=== PATIENT | male | born 1945 | race Asian ===

== ENCOUNTER 2023-08-13 03:28 | Emergency (ER) | payer MEDICARE, OTHER, SELFPAY ==
[2023-08-13 03:30] VITALS: BP 140/80
[2023-08-13 04:05] VITALS: BP 135/79
--- NOTE | 2023-08-13 04:12 | ED.GENMED ---
History of Present Illness
<GERARDO Massey - Last Filed: 08/13/23 04:27>
General
Chief Complaint: Cough
Source: patient and family
Exam Limitations: none
Time Seen by Provider: 08/13/23 03:53
Nursing documentation reviewed up to this point in time: agreed with
Travel History
Have you had any contact with someone who has COVID-19?: No
Do you have any symptoms of coronavirus? Fever > 100 degrees, chills, cough, shortness of breath, sore throat, loss of taste or smell, muscle aches, or headache?: No
History of Present Illness
History of Present Illness:
77 y/o M presents to ED c/o cough x 2 days. He reports the cough is non-productive and constant. It is is moderate in severity. Patient reports pain in chest after coughing. The chest pain is only present with coughing. He is also reporting weakness
in legs and body that makes it difficult for him to stand. He has no history of smoking. Patient is hydrating well and no change in usual diet. Reports difficulty sleeping due to cough. Denies new medications SOB, nausea, vomiting, diarrhea, fever,
sore throat or chills .
If applicable-neuro sx onset
Onset of symptoms known: Yes
Date of onset of symptoms: 08/12/23
Past History
<GERARDO Massey - Last Filed: 08/13/23 04:27>
Social History
Tobacco: Non-smoker
Review of Systems
<GERARDO Massey - Last Filed: 08/13/23 04:27>
Review of Systems
Allergies reviewed?: Yes
Other source history: family
All Other Systems: ROS reviewed and negative except as documented in HPI and ROS
Constitutional: Reports no symptoms
EENT: Reports no symptoms
Respiratory: Reports cough
Cardiac: Reports no symptoms
ABD/GI: Reports no symptoms
: Reports no symptoms
Musculoskeletal: Reports other (muscle weakness)
Skin: Reports no symptoms
Neurological: Reports no symptoms
Endocrine: Reports no symptoms
Hematologic/Lymphatic: Reports no symptoms
Psychiatric: Reports no symptoms
Phy Exam
<SallyGERARDO Neely - Last Filed: 08/13/23 04:27>
General Physical Exam
General Presentation: well appearing and no apparent distress
General age: appears stated age
General Skin: warm
General Habitus: normal
General Mental: alert
General Hydration: appears well hydrated
ENT Exam
ENT Exam: EOMI, TM's normal, pharynx normal and neck supple
Eye Exam
Eye Exam: PERRL and conjunctiva normal
Cardiovascular Exam
Cardiovascular Exam: regular rate/rhythm, no edema, no gallop, no murmur and normal peripheral pulses
Pulmonary Exam
Pulmonary Exam: decreased breath sounds
Gastrointestinal Exam
Gastrointestinal Exam: normal bowel sounds and non tender
Neurological Exam
Neurological Exam: alert and oriented x3
Skin Exam
Skin Exam: normal color and warm/dry
Psychiatric Exam
Psychiatric Exam: normal mood/affect
Course
<SallyGERARDO Neely - Last Filed: 08/13/23 04:27>
Orders/Labs/Results
Orders:
Orders
08/13/23 05:47
CR Chest - 2 Views Urgent
Comment:
Reason For Exam: cough
08/13/23 06:06
COVID-19 Antigen Urgent
Source: Nasal Swab
Influenza A+B Rapid Molecular Urgent
MALIK Source: Nasal Swab
Specimen Description:
Vital Signs
Initial and Last Documented VS:
Initial Vital Signs
Temp Pulse Resp BP Pulse Ox
100.3 F 103 26 140/80 95
08/13/23 03:30 08/13/23 03:30 08/13/23 03:30 08/13/23 03:30 08/13/23 03:30
Last Documented Vital Signs
Temp Pulse Resp BP Pulse Ox
100.3 F 97 19 132/63 94
08/13/23 03:30 08/13/23 06:36 08/13/23 05:00 08/13/23 06:36 08/13/23 06:36
<Singh Young DO - Last Filed: 08/13/23 22:04>
Orders/Labs/Results
Orders:
Orders
08/13/23 05:47
CR Chest - 2 Views Urgent
Comment:
Reason For Exam: cough
08/13/23 06:06
COVID-19 Antigen Urgent
Source: Nasal Swab
Influenza A+B Rapid Molecular Urgent
MALIK Source: Nasal Swab
Specimen Description:
Vital Signs
Initial and Last Documented VS:
Initial Vital Signs
Temp Pulse Resp BP Pulse Ox
100.3 F 103 26 140/80 95
08/13/23 03:30 08/13/23 03:30 08/13/23 03:30 08/13/23 03:30 08/13/23 03:30
Last Documented Vital Signs
Temp Pulse Resp BP Pulse Ox
100.3 F 97 19 132/63 94
08/13/23 03:30 08/13/23 06:36 08/13/23 05:00 08/13/23 06:36 08/13/23 06:36
<GERARDO Massey - Last Filed: 08/13/23 04:27>
MDM/Problems Addressed
Differential Diagnosis Includes:
Viral
PNA
COVID
Flu
<Singh Young DO - Last Filed: 08/13/23 22:04>
*Critical Care Note
Total Time (30-74mins, 75-104mins- exclusive of procedures): Not Applicable
ED Attending Note
<GERARDO Massey - Last Filed: 08/13/23 04:27>
-
Portions of this chart may have been created with voice recognition software.� Occasional wrong word or��sound alike� substitutions may have occurred due to the inherent limitations of voice recognition software.
<Singh Young DO - Last Filed: 08/13/23 22:04>
ED Attending Note
Patient seen and examined by attending physician: Yes
I performed the substantive portion of visit, reviewed & personally made and approve the management plan that is documented in note by myself or MORALES.: Yes
Discharge Plan
Departure
Patient Disposition: Home (Routine Discharge)
Date of Disposition: 08/13/23
Time of Disposition: 06:39
Patient with high blood pressure during this ER visit?: Yes
Condition: Good
Discharge Problem:
Influenza A
Instructions: Flu, Adult (DC)
Prescriptions:
New
benzonatate 100 mg capsule
100 mg PO TID PRN (Reason: Cough) Qty: 14 0RF
albuterol sulfate [ProAir HFA] 90 mcg/actuation HFA aerosol inhaler
1 puff inhalation Q4HPRN PRN (Reason: shortness of breath) Qty: 8.5 0RF
oseltamivir [Tamiflu] 75 mg capsule
75 mg PO BID Qty: 10 0RF
No Action
Theragen Tablet
1 tab PO DAILY
aspirin 81 mg Tablet,Delayed Release (Dr/Ec)
81 mg PO DAILY
levothyroxine [Synthroid] 75 mcg Tablet
75 mcg PO DAILY
tamsulosin [Flomax] 0.4 mg Capsule
0.4 mg PO DAILY
cholecalciferol (vitamin D3) [Vitamin D3] 25 mcg (1,000 unit) Tablet
25 mcg PO DAILY
atorvastatin 20 mg tablet
20 mg PO DAILY Qty: 30 0RF
Referrals:
Edgar Cochran, [Family Provider] -
Activity Restrictions/Additional Instructions:
It was a pleasure meeting you and taking part in your care. We hope for your continued healing and wellness.
Please read discharge instructions in their entirety. However, they are for general education and may not describe your exact diagnosis at discharge. Information on your ER visit and medical conditions were discussed with you along with appropriate
follow up information...
If indicated, please take your medications as instructed and indicated on discharge paperwork.
Please schedule a follow up appointment as directed. Call to schedule an appointment
Please return to the emergency department with ANY change in, persisting, or worsening of symptoms. If any of your symptoms do not improve, or persist, or become more severe within 6-12 hours, please return to the emergency department for further
care.
Please return to the emergency department if you develop a headache, neck pain/stiffness, fever greater than 100.4F, chest pain, shortness of breath, persistent nausea, vomiting, slurred speech, difficulty walking, numbness/tingling, weakness, signs
of infection or any other symptoms that are worrisome to you.
If you have any questions or concerns please do not hesitate to call the Hospital at or E-mail me directly at [email or web address]
Interventions
Interventions:
*Risk Screen - Suicide Last Done: 08/13/23 06:11
*General Assessment Last Done: 08/13/23 04:35
*Neglect/Abuse Screening Last Done: 08/13/23 03:56
ED- Fall Risk Assessment Last Done: 08/13/23 06:11
*ED COVID-19 Vaccine History Last Done: 08/13/23 03:56
*Nursing Disposition Last Done: 08/13/23 06:57
ED- Pulmonary Assessment Last Done: 08/13/23 06:11
Discharge Date and Time
Discharge Date/Time: 08/13/23 06:57
[2023-08-13 05:00] VITALS: BP 136/70
[2023-08-13 06:11] VITALS: BMI 24.2
[2023-08-13 06:34] LABS: COVID-19 Antigen Negative (Negative)
[2023-08-13 06:36] VITALS: BP 132/63
== END 2023-08-13 06:57 | disposition home or self-care (01) ==
LOC: EMR 03:28
PROVIDERS: EMERGENCY PHYSICIAN Student in an Organized Health Care Education/Training Program; FAMILY PHYSICIAN Family Medicine
DX: J10.1 Influenza due to other identified influenza virus with other respiratory manifestations (principal); M62.81 Muscle weakness (generalized); Z11.52 Encounter for screening for COVID-19; R03.0 Elevated blood-pressure reading, without diagnosis of hypertension; G47.9 Sleep disorder, unspecified; E07.9 Disorder of thyroid, unspecified; Z79.82 Long term (current) use of aspirin; Z87.442 Personal history of urinary calculi
CPT/HCPCS: 99283; 71046; 87502; 87811